=== PATIENT | female | born 1995 | race African-American/Black ===

== ENCOUNTER 2017-09-29 09:33 | Day surgery (SDC) | payer OTHER ==
[2017-09-29 10:31] LABS: CONTROL LINE UCG INT CTR LINE PRESENT; URINE PREG TEST NEGATIVE (NEGATIVE)
[2017-09-29] MEDS: LR 1,000 ML IV (10:42)
[2017-09-29] MEDS ORDERED: MIDAZOLAM INJ 2 MG/2 ML VIAL (J2250) As Ordered (11:25)
[2017-09-29] MEDS ORDERED: ROCURONIUM BROMIDE 50 MG/5 ML VIAL As Ordered (11:25)
[2017-09-29] MEDS ORDERED: fentaNYL 100 MCG/2 ML INJECTION (J3010) As Ordered (11:25)
[2017-09-29] MEDS: LIDOCAINE W/EPINEPHRINE 1% 20ML VIAL As Ordered (11:32)
[2017-09-29] MEDS: BUPIVACAINE/EPIN 0.5% 30 ML VIAL As Ordered (11:33)
[2017-09-29] MEDS ORDERED: PROPOFOL 200 MG/20 ML VIAL As Ordered ×2 (11:37)
[2017-09-29] MEDS ORDERED: SUGAMMADEX SODIUM 500 MG/5 ML VIAL (BRIDION) As Ordered (11:38)
[2017-09-29] MEDS ORDERED: dexameTHASONE 4 MG/ML 1ML VIAL (J1100) As Ordered (11:38)
[2017-09-29] MEDS ORDERED: ONDANSETRON 4MG/2ML VIAL (J2405) As Ordered (11:38)
[2017-09-29] MEDS ORDERED: HYDROmorphone HCL 2 MG/ML 1ML VIAL (J1170) As Ordered (11:39)
[2017-09-29] MEDS ORDERED: ESMOLOL INJ 100MG/10ML VIAL As Ordered (11:43)
[2017-09-29] MEDS ORDERED: ACETAMINOPH W/CODEINE #3 TAB UD PO (12:15)
[2017-09-29] MEDS ORDERED: LR 1,000 ML IV ×2 (12:15→12:30)
[2017-09-29] MEDS ORDERED: ONDANSETRON 4MG/2ML VIAL (J2405) IV (12:30)
[2017-09-29] MEDS ORDERED: fentaNYL 100 MCG/2 ML INJECTION (J3010) IV (12:30)
[2017-09-29] MEDS: NORCO, ANEXSIA 5/325MG TABLET (HYDROcodone/ACETAMINOPHEN) PO (13:00)
== END 2017-09-29 14:22 | disposition home or self-care (01) ==
LOC: M SDC 09:33
DX: J35.01 Chronic tonsillitis (principal)
CPT/HCPCS: 42826

== ENCOUNTER 2017-10-04 20:04 | Emergency (ER) | payer OTHER ==
[2017-10-04] MEDS: ONDANSETRON 4 MG ORAL DISINTEGRATING TAB (S0181) PO (22:39)
[2017-10-04] MEDS: PERCOCET 5MG/325MG TAB PO (22:39)
== END 2017-10-04 23:47 | disposition home or self-care (01) ==
LOC: M ED 20:04
DX: J95.830 Postprocedural hemorrhage of a respiratory system organ or structure following a respiratory system procedure (principal); Z79.3 Long term (current) use of hormonal contraceptives
CPT/HCPCS: 99283

== ENCOUNTER 2020-05-17 01:58 | Emergency (ER) | payer OTHER ==
[~2020-05-17] VITALS: Ht 165.1 cm; Wt 50.0 kg
[~2020-05-17 01:58] MED LIST: ACET125EL; HYDR5SYP PO; IBUP-1114; no medications
[2020-05-17 02:07] VITALS: BP 108/81
[2020-05-17] MEDS ORDERED: ONDANSETRON 4 MG ORAL DISINTEGRATING TAB PO ONE (02:15)
== END 2020-05-17 02:46 | disposition home or self-care (01) ==
LOC: M ED 01:58
DX: F10.120 Alcohol abuse with intoxication, uncomplicated (principal); Z79.891 Long term (current) use of opiate analgesic; Z79.1 Long term (current) use of non-steroidal anti-inflammatories (NSAID)
CPT/HCPCS: 99284; Q0162

== ENCOUNTER 2020-11-25 13:29 | Emergency (ER) | payer OTHER ==
[~2020-11-25] VITALS: Ht 165.1 cm; Wt 59.5 kg
[2020-11-25 13:29] VITALS: BP 140/80
[2020-11-25] MEDS ORDERED: CYCL5TAB PO (13:32)
== END 2020-11-25 14:41 | disposition home or self-care (01) ==
LOC: M ED 13:29
DX: M72.2 Plantar fascial fibromatosis (principal)